=== PATIENT | male | born 1930 | race Two or more races ===

== ENCOUNTER 2017-02-08 06:13 | Inpatient (IN) | payer OTHER ==
[~2017-02-08] VITALS: Ht 167.6 cm; Wt 74.4 kg
--- NOTE | 2017-02-08 06:20 | NUR ---
PT BIBA#75 FROM HOME, PT C/O FLU LIKE SYMPTOMS WITH LOW BP X 2 DAYS. PT AOX3 RR EVEN AND UNLABORED. NO SOB NOTED. NO NVD AT THIS TIME. PT NOT DIAPHORETIC. PT GOWNED ANDPLACED ON MONITOR. PER RA PLACED IV ON LEFT HAND 20G. INTACT AND PATENT. NO S/S INFECTION OR INFILTRATION NOTED. DR OLIVEIRA AT BEDSIDE FOR EVAL.
[2017-02-08] MEDS ORDERED: ONDANSETRON HCL/PF 4 MG/2 ML VIAL ONE (06:28)
[2017-02-08 06:30] LABS: BASOPHILS % (AUTO) 0.7 % (0.0-2.0); EOSINOPHILS % (AUTO) 0.2 % (0.0-6.0); HEMATOCRIT 34 % (39-51); HEMOGLOBIN 11.8 g/dL (13.5-17.5); LYMPHOCYTES # (AUTO) 0.3 /CMM (0.8-4.8); LYMPHOCYTES % (AUTO) 8.9 % (20.0-44.0); MEAN CORPUSCULAR HEMOGLOBIN 32 PG (26.0-33.0); MEAN CORPUSCULAR HGB CONC 34 g/dl (31.0-36.0); MEAN CORPUSCULAR VOLUME 93 fL (80-96); MONOCYTES # (AUTO) 0.2 /CMM (0.1-1.30); MONOCYTES % (AUTO) 5.8 % (2.0-12.0); NEUTROPHILS # (AUTO) 3.3 /CMM (1.8-8.9); NEUTROPHILS % (AUTO) 84.4 % (43.0-81.0); PLATELET COUNT (AUTO) 125 /CMM (150-450); RDW COEFFICIENT OF VARIATION 13.8 (11.5-15.0); RED BLOOD CELL COUNT(AUTO) 3.68 MIL/uL (4.5-6.0); WHITE BLOOD COUNT (AUTO) 3.8 K/uL (4.3-11.0)
[2017-02-08] MEDS ORDERED: ONDANSETRON HCL/PF 4 MG/2 ML VIAL IVP ONE (06:30)
[2017-02-08] MEDS ORDERED: IV NS 0.9% 1,000 ML BAG IV ONE ×4 (06:30→13:00)
[2017-02-08 06:48] LABS: CALCIUM, SERUM 8.2 mg/dL (8.5-10.1); CARBON DIOXIDE 22 mmol/L (21-32); CHLORIDE 106 mmol/L (98-107); CREATININE 1.6 mg/dL (0.6-1.3); GLUCOSE 117 mg/dL (74-106); POTASSIUM 3.5 mmol/L (3.5-5.1); SODIUM SERUM 140 mmol/L (136-145); UREA NITROGEN, BLOOD 20 mg/dL (7-18)
[2017-02-08 06:53] LABS: ALANINE AMINOTRANSFERASE 18 U/L (12-78); ALBUMIN 2.9 g/dL (3.4-5.0); ALKALINE PHOSPHATASE 42 U/L (46-116); ASPARTATE AMINOTRANSFERASE 20 U/L (15-37); BILIRUBIN,DIRECT 0.2 mg/dL (0.0-0.2); TOTAL PROTEIN, SERUM 5.8 g/dL (6.4-8.2)
[2017-02-08 06:58] LABS: TROPONIN I 0.049 ng/mL (0.00-0.056)
[2017-02-08 06:59] LABS: INR 0.98 (0.87-1.13); PROTHROMBIN TIME 10.2 SECS (9.5-12.7)
--- NOTE | 2017-02-08 07:15 | NUR ---
REPORT GIVEN TO MABEL MC FOR PATRICIA
[2017-02-08] MEDS ORDERED: AZITHROMYCIN 500 MG in IV D5W 250 ML IV ONE (07:30)
[2017-02-08] MEDS ORDERED: CEFTRIAXONE 1GM BAG (ER ONLY) 50 ML IV ONE (07:30)
--- NOTE | 2017-02-08 07:37 | NUR ---
VERBALLY ORDERED BY DR OLIVEIRA, 1L NS IV BOLUS.
[2017-02-08] MEDS ORDERED: BECL8.7A6 IH (07:47)
[2017-02-08] MEDS ORDERED: MONT10TA22 PO (07:47)
[2017-02-08] MEDS ORDERED: SIMV40TA5 PO (07:47)
[2017-02-08] MEDS ORDERED: RANI300T4 PO (07:47)
[2017-02-08] MEDS ORDERED: LORA10TA7 PO (07:47)
[2017-02-08] MEDS ORDERED: ALBU8.5H8 IH (07:47)
[2017-02-08] MEDS ORDERED: ALBU2.5V38 IH (07:47)
[2017-02-08] MEDS ORDERED: ASPI-1169 PO (07:47)
[2017-02-08] MEDS ORDERED: NOREPINEPHRINE 8 MG in IV D5W 500 ML IV ONE (10:30)
[2017-02-08] MEDS ORDERED: FEE PK DOSING 1 MIN EA MC ONE (10:32)
[2017-02-08] MEDS ORDERED: IPRATROPIUM NEB FS 0.5 MG/2.5 ML AMPUL.NEB NEB ONE (11:00)
[2017-02-08] MEDS ORDERED: ALBUTEROL FS 2.5 MG/3 ML VIAL.NEB CONTNEB ONE (11:00)
[2017-02-08] MEDS ORDERED: IPRATROPIUM NEB FS 0.5 MG/2.5 ML AMPUL.NEB ONE (11:00)
[2017-02-08] MEDS ORDERED: IBUPROFEN 600 MG TABLET PO ONE ×2 (11:00→11:01)
[2017-02-08] MEDS ORDERED: ALBUTEROL FS 2.5 MG/3 ML VIAL.NEB ONE ×2 (11:00→23:03)
--- NOTE | 2017-02-08 11:14 | NUR ---
BREATHING TREATMENT AT .
--- NOTE | 2017-02-08 12:23 | NUR ---
XRAY IN PROGRESS AT BS FOR POST PICC LINE PLACEMENT VERIFICATION.
[2017-02-08] MEDS ORDERED: NOREPINEPHRINE 8 MG in IV D5W 500 ML IV PRN ×2 (12:30→13:00)
[2017-02-08] MEDS ORDERED: MORPHINE SULFATE INJ 2 MG/ML DISP.SYRIN IV PRN (13:00)
[2017-02-08] MEDS ORDERED: VANCOMYCIN 1 GM in IV D5W 250 ML IV ONE (13:00)
[2017-02-08] MEDS ORDERED: methylPREDNISolone SOD SUCC 40 MG/ML VIAL IV SCH (13:00)
[2017-02-08 13:23] LABS: IRON, SERUM 14 ug/dl (50-175); TOTAL IRON BINDING CAPACITY 233 ug/dl (250-450)
[2017-02-08] MEDS ORDERED: ALBUTEROL FS 2.5 MG/3 ML VIAL.NEB IH SCH (18:00)
--- NOTE | 2017-02-08 19:30 | NUR ---
PATIENT IS ALERT AND RESPONSIVE. VSS. NAD NOTED. ONGOING LEVO DRIP AT 2MCG/MIN, WILL FOLLOW TITRATION PROTOCOL AND WILL CLOSELY MONITOR PATIENT.
[2017-02-08] MEDS ORDERED: VANCOMYCIN 1 GM VIAL ONE (20:52)
[2017-02-08] MEDS ORDERED: PIPERACILLIN /TAZOBACTAM 3.375 G VIAL IV ONE (20:52)
[2017-02-08] MEDS ORDERED: MONTELUKAST SODIUM (10MG) 10 MG TABLET ONE (20:52)
[2017-02-08] MEDS ORDERED: SIMVASTATIN 20 MG TABLET ONE (20:53)
[2017-02-08] MEDS ORDERED: ASPIRIN EC 81 MG TABLET.DR PO ONE (20:53)
[2017-02-08] MEDS: ASPIRIN 81 MG TAB.CHEW PO SCH (21:22)
[2017-02-08] MEDS: MONTELUKAST SODIUM (10MG) 10 MG TABLET PO SCH (21:23)
[2017-02-08] MEDS: SIMVASTATIN 40 MG TABLET PO SCH (21:23)
--- NOTE | 2017-02-08 21:59 | NUR ---
PATIENT IS SLEEPING COMFORTABLY AT THIS TIME.
[2017-02-08] MEDS ORDERED: methylPREDNISolone SOD SUCC 125 MG/2ML VIAL ONE (22:01)
[2017-02-08] MEDS: PIPERACILLIN /TAZOBACTAM 3.375 G in IV D5W 50 ML IV SCH (22:40)
[2017-02-09] MEDS: PIPERACILLIN /TAZOBACTAM 3.375 G in IV D5W 50 ML IV SCH ×5 (00:24→23:07)
[2017-02-09 06:25] LABS: HEMATOCRIT 34 % (39-51); HEMOGLOBIN 11.9 g/dL (13.5-17.5); LYMPHOCYTES # (AUTO) 0.2 /CMM (0.8-4.8); LYMPHOCYTES % (AUTO) 1.8 % (20.0-44.0); MEAN CORPUSCULAR HEMOGLOBIN 33 PG (26.0-33.0); MEAN CORPUSCULAR HGB CONC 35 g/dl (31.0-36.0); MEAN CORPUSCULAR VOLUME 94 fL (80-96); MONOCYTES % (AUTO) 0.5 % (2.0-12.0); NEUTROPHILS # (AUTO) 9.6 /CMM (1.8-8.9); NEUTROPHILS % (AUTO) 97.7 % (43.0-81.0); PLATELET COUNT (AUTO) 112 /CMM (150-450); RDW COEFFICIENT OF VARIATION 14.9 (11.5-15.0); RED BLOOD CELL COUNT(AUTO) 3.63 MIL/uL (4.5-6.0); WHITE BLOOD COUNT (AUTO) 9.8 K/uL (4.3-11.0)
[2017-02-09 06:48] LABS: TROPONIN I 0.092 ng/mL (0.00-0.056)
[2017-02-09 06:49] LABS: ALANINE AMINOTRANSFERASE 20 U/L (12-78); ALBUMIN 2.7 g/dL (3.4-5.0); ALKALINE PHOSPHATASE 28 U/L (46-116); ASPARTATE AMINOTRANSFERASE 27 U/L (15-37); BILIRUBIN,TOTAL 0.7 mg/dL (0.2-1.0); CALCIUM, SERUM 7.8 mg/dL (8.5-10.1); CARBON DIOXIDE 19 mmol/L (21-32); CHLORIDE 109 mmol/L (98-107); CREATININE 1.3 mg/dL (0.6-1.3); GLUCOSE 97 mg/dL (74-106); POTASSIUM 4.1 mmol/L (3.5-5.1); SODIUM SERUM 140 mmol/L (136-145); TOTAL PROTEIN, SERUM 6.1 g/dL (6.4-8.2); UREA NITROGEN, BLOOD 21 mg/dL (7-18)
--- NOTE | 2017-02-09 06:55 | NUR ---
NO ACUTE SIGNIFICANT CHANGES AT THIS TIME. VSS. NAD NOTED. PATIENT REMAINED AND AAOX3. MAINTAINED ON O2 INH. ONGOING VS MONITORING. MEDICATED PATIENT ORDERED. NEEDS ATTENDED.
[2017-02-09 06:57] LABS: CREATINE KINASE MB 3.3 ng/mL (0-3.6)
--- NOTE | 2017-02-09 07:29 | NUR ---
REPORT GIVEN TO RONNIE MONROE FOR PATRICIA.
[2017-02-09 07:35] LABS: INR 1.15 (0.87-1.13)
[2017-02-09] MEDS ORDERED: PANTOPRAZOLE 40 MG VIAL ONE (09:47)
[2017-02-09] MEDS ORDERED: LORATADINE 10 MG TABLET ONE (09:47)
[2017-02-09] MEDS: PANTOPRAZOLE 40 MG VIAL IV SCH (09:52)
[2017-02-09] MEDS: LORATADINE 10 MG TABLET PO SCH (09:54)
--- NOTE | 2017-02-09 13:51 | NUR ---
NM: LUNG V/Q WAS COMPLETED. TECH:RB.
[2017-02-09] MEDS: VANCOMYCIN 1 GM in IV D5W 250 ML IV SCH (16:40)
[2017-02-09] MEDS ORDERED: ALBUTEROL FS 2.5 MG/3 ML VIAL.NEB ONE (17:54)
[2017-02-09] MEDS: ALBUTEROL FS 2.5 MG/3 ML VIAL.NEB NEB SCH (17:56)
[2017-02-09] MEDS: ASPIRIN 81 MG TAB.CHEW PO SCH (18:30)
[2017-02-09] MEDS: SIMVASTATIN 40 MG TABLET PO SCH (18:32)
[2017-02-09] MEDS: MONTELUKAST SODIUM (10MG) 10 MG TABLET PO SCH (18:32)
[2017-02-09] MEDS ORDERED: ASPIRIN 81 MG TAB.CHEW ONE (18:34)
--- NOTE | 2017-02-09 20:20 | NUR ---
REPORT GIVEN TO MABEL LENNON FOR PATRICIA.
--- NOTE | 2017-02-09 20:30 | NUR ---
PT REPORT RECIVED FROM RONNIE RN, PT IN BED ON MONITOR, NAD NOTED, VSS, WILL CONTINUE TO MONITOR.
[2017-02-09 21:30] VITALS: BP 124/60
[2017-02-09 22:00] VITALS: BP 135/54
[2017-02-09] MEDS ORDERED: HEPARIN SODIUM, PORCINE 5000 UNITS/1 ML VIAL ONE ×2 (22:57→22:58)
[2017-02-09] MEDS ORDERED: PIPERACILLIN /TAZOBACTAM 3.375 G VIAL IV ONE (22:58)
[2017-02-09 23:00] VITALS: BP 120/61
[2017-02-09] MEDS: HEPARIN SODIUM, PORCINE 5000 UNITS/1 ML VIAL SQ SCH (23:02)
[2017-02-09] MEDS ORDERED: IV NS 0.9% 250 ML IV PRN (23:30)
[2017-02-10] VITALS (13 sets, daily range): BP systolic 91–138; BP diastolic 40–108
--- NOTE | 2017-02-10 04:40 | NUR ---
RETORT FIREMAN PT WAS ADMITTED FROM ER WITH DIAGNOSIS PNA, PE. V/Q SCAN DONE IN ER-INTERMEDIATE PROBABILITY FOR PE. PT IS AWAKE ALERT, ORIENTED. SPEECH CLEAR. MOVES ALL EXTREMITIES. O2 4L VIA N/C. LUNGS CLEAR. SCOPE-SR. VSS, AFEBRILE. STARTED HEPARIN 5000 UNITS SQ Q 12 HOURS. IV SITE INTACT. VOIDS SUFFICIENT AMT. OF CLEAR URINE.
[2017-02-10] MEDS ORDERED: PIPERACILLIN /TAZOBACTAM 3.375 G VIAL IV ONE (05:03)
[2017-02-10] MEDS: PIPERACILLIN /TAZOBACTAM 3.375 G in IV D5W 50 ML IV SCH ×3 (05:26→17:05)
[2017-02-10 05:52] LABS: HEMATOCRIT 30 % (39-51); HEMOGLOBIN 10.4 g/dL (13.5-17.5); LYMPHOCYTES # (AUTO) 0.4 /CMM (0.8-4.8); LYMPHOCYTES % (AUTO) 2.5 % (20.0-44.0); MEAN CORPUSCULAR HEMOGLOBIN 32 PG (26.0-33.0); MEAN CORPUSCULAR HGB CONC 34 g/dl (31.0-36.0); MEAN CORPUSCULAR VOLUME 94 fL (80-96); MONOCYTES % (AUTO) 0.3 % (2.0-12.0); NEUTROPHILS # (AUTO) 15.8 /CMM (1.8-8.9); NEUTROPHILS % (AUTO) 97.2 % (43.0-81.0); PLATELET COUNT (AUTO) 94 /CMM (150-450); RDW COEFFICIENT OF VARIATION 14.9 (11.5-15.0); RED BLOOD CELL COUNT(AUTO) 3.21 MIL/uL (4.5-6.0); WHITE BLOOD COUNT (AUTO) 16.2 K/uL (4.3-11.0)
[2017-02-10 06:05] LABS: CALCIUM, SERUM 7.8 mg/dL (8.5-10.1); CARBON DIOXIDE 23 mmol/L (21-32); CHLORIDE 107 mmol/L (98-107); GLUCOSE 102 mg/dL (74-106); MAGNESIUM 1.9 mg/dL (1.8-2.4); PHOSPHORUS 1.5 mg/dL (2.5-4.9); POTASSIUM 3.3 mmol/L (3.5-5.1); SODIUM SERUM 139 mmol/L (136-145); UREA NITROGEN, BLOOD 26 mg/dL (7-18)
--- NOTE | 2017-02-10 07:30 | NUR ---
HOURLY SHIFT INITIAL NOTES RECEIVED PATIENT IN BED, NO SIGNS OF DISTRESS, ON O2 3L SATURATING WELL, STATES HE IS FEELING BETTER TODAY, SITTING UP IN BED, IV ACCESS L HAND 20G, RAC 18G, AND PICC ROXANNA, ON TELE MONITORING SR 81, ABLE TO USE URINAL CLEAR YELLOW URINE NOTED, BED IN LOW AND LOCKED POSITION, CALL LIGHT WITHIN REACH, WILL CONTINUE TO MONITOR.
[2017-02-10] MEDS: PANTOPRAZOLE 40 MG VIAL IV SCH (08:58)
[2017-02-10] MEDS: HEPARIN SODIUM, PORCINE 5000 UNITS/1 ML VIAL SQ SCH ×2 (08:58→21:52)
[2017-02-10] MEDS: LORATADINE 10 MG TABLET PO SCH (08:58)
[2017-02-10] MEDS: VANCOMYCIN 1 GM in IV D5W 250 ML IV SCH (09:01)
[2017-02-10] MEDS ORDERED: POTASSIUM PHOSPHATE MM 15 MMOL in IV D5W 250 ML IV SCH (10:00)
[2017-02-10] MEDS ORDERED: POTASSIUM CHLORIDE 20 MEQ TAB.PRT.SR PO ONE (10:00)
[2017-02-10 10:15] LABS: BAND % (MANUAL) 19 % (0.0-5.0); LYMPHOCYTES % (MANUAL) 5 % (16-48); MONOCYTES % (MANUAL) 4 % (0-11.0); NEUTROPHILS % (MANUAL) 72 (42-76)
--- NOTE | 2017-02-10 10:44 | NUR ---
AUTO ELECTRICIAN NOTES PATIENT TRANSFERRED TO [facility]-2 REPORT GIVEN TO MARIAJOSE MONROE. ALL NEEDS ATTENDED TO, NO SIGNS OF DISTRESS. FAMILY AT BEDSIDE.
--- NOTE | 2017-02-10 11:00 | NUR ---
RN NOTES PT BROUGHT ONTO FLOOR BY LITIGATION PARTNER JAVIER. PT ON STABLE CONDITION ON 4L O2, RESPIRATIONS ARE EVEN AND UNLABORED. PT IS ALERT AND ORIENTED, DENIES ANY PAIN AND SHOWS NO SIGNS OF DISTRESS. WILL CONTINUE TO MONITOR.
[2017-02-10] MEDS ORDERED: IV NS 0.9% 250 ML IV ONE (11:22)
[2017-02-10] MEDS ORDERED: CT SWABBABLE VALVE TRANS SET 1 EA INFUS.SET MC ONE (11:23)
[2017-02-10] MEDS ORDERED: IOHEXOL-350 100 ML VIAL IV ONE (11:23)
[2017-02-10] MEDS: POTASSIUM PHOSPHATE MM 7.5 MMOL in IV D5W 100 ML IV SCH ×2 (12:46→15:45)
[2017-02-10] MEDS: MORPHINE SULFATE INJ 4 MG/ML DISP.SYRIN IV PRN (14:12)
[2017-02-10] MEDS: MONTELUKAST SODIUM (10MG) 10 MG TABLET PO SCH (17:05)
[2017-02-10] MEDS: SIMVASTATIN 40 MG TABLET PO SCH (17:05)
[2017-02-10] MEDS: LACTOBACILLUS RHAMNOSUS GG 1 EACH CAP.SPRINK PO SCH (17:05)
[2017-02-10] MEDS: ASPIRIN 81 MG TAB.CHEW PO SCH (17:05)
--- NOTE | 2017-02-10 18:33 | NUR ---
RN NOTES PT IS SITTING AT THE EDGE OF BED EATING DINNER. PT ON 4L O2, RESPIRATIONS ARE EVEN AND UNLABORED. IV ON L HAND INTACT, RAC INTACT AND RUNNING NS @ 100ML/HR AND ROXANNA PICC LINE INTACT AND RUNNING POTASSIUM PHOSPHATE @ 35ML/HR. ALL MEDS WERE GIVEN ORDERED. PT NEEDS MET, NO SIGNS OF DISTRESS NOTED. SAFETY MEASURES ARE IN PLACE, CALL LIGHT IS IN REACH. WILL ENDORSE TO TEA LEAF READER RN FOR CONTINUITY OF CARE.
--- NOTE | 2017-02-10 19:00 | NUR ---
RN NOTES A/O X 4, PT IN STABLE CONDITION, NO S/S OF DISTRESS. SAFETY MEASURES ARE IN PLACE, CALL LIGHT IS IN REACH. WILL CONTINUE TO MONITOR.
[2017-02-10] MEDS: VANCOMYCIN 0.75 GM in IV D5W 250 ML IV SCH (21:49)
[2017-02-10] MEDS: IV NS 0.9% 1,000 ML IV PRN (21:50)
[2017-02-11] VITALS: BP_SYST 119; BP_SYST 126; BP_DIAS 71; BP_DIAS 75
[2017-02-11] MEDS: PIPERACILLIN /TAZOBACTAM 3.375 G in IV D5W 50 ML IV SCH ×4 (00:18→17:05)
[2017-02-11] MEDS: ACETAMINOPHEN 650 MG/20.3 ML UDC NG PRN (00:22)
[2017-02-11 04:00] VITALS: BP_SYST 113; BP_SYST 126; BP_DIAS 62; BP_DIAS 71
--- NOTE | 2017-02-11 06:20 | NUR ---
MS RN CLOSING NOTES IN BED ASLEEP AND EASILY AWAKEN, ON O2 2LPM VIA NC 02 SAT AT 97% RESPIRATIONS EVEN AND UNLABORED. NOT IN S/S DISTRESS. STABLE CONDITION. ALL NURSING CARE RENDERED. NEEDS ATTENDED AND ANTICIPATED, KEPT CLEAN AND DRY AND COMFORTABLE, FREQUENT VISUAL CHECK DONE FOR SAFETY EVERY 2 HOURS. ON LOW BED AT ALL TIMES TO ENSURE SAFETY. SAFE HAZARD FREE ENVIRONMENT PROVIDED. CALL LIGHT WITHIN EASY TO REACH. WILL ENDORSE NEXT SHIFT CONTINUITY OF CARE.
[2017-02-11 07:51] LABS: BASOPHILS % (AUTO) 0.1 % (0.0-2.0); EOSINOPHILS # (AUTO) 0.1 /CMM (0.0-0.7); EOSINOPHILS % (AUTO) 0.9 % (0.0-6.0); HEMATOCRIT 31 % (39-51); HEMOGLOBIN 10.6 g/dL (13.5-17.5); LYMPHOCYTES # (AUTO) 0.9 /CMM (0.8-4.8); LYMPHOCYTES % (AUTO) 8.5 % (20.0-44.0); MEAN CORPUSCULAR HEMOGLOBIN 33 PG (26.0-33.0); MEAN CORPUSCULAR HGB CONC 35 g/dl (31.0-36.0); MEAN CORPUSCULAR VOLUME 94 fL (80-96); MONOCYTES # (AUTO) 0.1 /CMM (0.1-1.30); MONOCYTES % (AUTO) 0.8 % (2.0-12.0); NEUTROPHILS # (AUTO) 9.8 /CMM (1.8-8.9); NEUTROPHILS % (AUTO) 89.7 % (43.0-81.0); PLATELET COUNT (AUTO) 95 /CMM (150-450); RDW COEFFICIENT OF VARIATION 15.1 (11.5-15.0); RED BLOOD CELL COUNT(AUTO) 3.27 MIL/uL (4.5-6.0); WHITE BLOOD COUNT (AUTO) 10.9 K/uL (4.3-11.0)
[2017-02-11 08:00] VITALS: BP 130/71
--- NOTE | 2017-02-11 08:00 | NUR ---
RN NOTES RECEIVED PATIENT IN THE BED SLEEPING, AROUSE WHEN TOUGHED OR CALLED NAME, V/S TAKEN STABLE, NO ACUTE RESPIRATORY DISTRESS, IV LINE ON LEFT HAND NS AT 100 ML/HR INTACT, CALL LIGHT WITHIN TO REACH, SAFETY PRECAUTION MAINTAINED ALL THE TIME.
[2017-02-11 08:21] LABS: ALANINE AMINOTRANSFERASE 56 U/L (12-78); ALBUMIN 2.1 g/dL (3.4-5.0); ALKALINE PHOSPHATASE 111 U/L (46-116); ASPARTATE AMINOTRANSFERASE 66 U/L (15-37); BILIRUBIN,TOTAL 0.6 mg/dL (0.2-1.0); CALCIUM, SERUM 8.2 mg/dL (8.5-10.1); CARBON DIOXIDE 25 mmol/L (21-32); CHLORIDE 109 mmol/L (98-107); CREATININE 1.2 mg/dL (0.6-1.3); GLUCOSE 79 mg/dL (74-106); MAGNESIUM 1.9 mg/dL (1.8-2.4); PHOSPHORUS 2.8 mg/dL (2.5-4.9); POTASSIUM 3.9 mmol/L (3.5-5.1); SODIUM SERUM 140 mmol/L (136-145); TOTAL PROTEIN, SERUM 5.6 g/dL (6.4-8.2); UREA NITROGEN, BLOOD 23 mg/dL (7-18)
--- NOTE | 2017-02-11 09:00 | NUR ---
RN NOTES PER DR PRICE PATIENT D/C TELE , PATIENT ON MED SURGE AT THIS TIME, CONTINUED MONITORING.
[2017-02-11] MEDS: VANCOMYCIN 0.75 GM in IV D5W 250 ML IV SCH ×2 (10:23→21:06)
[2017-02-11] MEDS: LACTOBACILLUS RHAMNOSUS GG 1 EACH CAP.SPRINK PO SCH ×2 (10:24→17:04)
[2017-02-11] MEDS: PANTOPRAZOLE 40 MG VIAL IV SCH (10:24)
[2017-02-11] MEDS: LORATADINE 10 MG TABLET PO SCH (10:24)
[2017-02-11] MEDS: ENOXAPARIN SODIUM 40 MG/0.4 ML DISP.SYRIN SQ SCH (10:33)
[2017-02-11 13:31] LABS: BAND % (MANUAL) 2 % (0.0-5.0); LYMPHOCYTES % (MANUAL) 8 % (16-48); NEUTROPHILS % (MANUAL) 82 (42-76)
[2017-02-11 13:32] LABS: EOSINOPHILS % (MANUAL) 1 % (0-4); METAMYELOCYTES % 1 % (0-0); MONOCYTES % (MANUAL) 6 % (0-11.0)
--- NOTE | 2017-02-11 14:06 | NUR ---
rn notes patient sitting edge of the bed, no acute distress, no respiratory distress, v/s stable, scheduled medication administered, call light within to reach, patient using urinal, safety precaution maintained all the time.
[2017-02-11 16:00] VITALS: BP 141/88
[2017-02-11] MEDS: IV NS 0.9% 1,000 ML IV PRN (16:46)
[2017-02-11] MEDS: SIMVASTATIN 40 MG TABLET PO SCH (17:09)
[2017-02-11] MEDS: ASPIRIN 81 MG TAB.CHEW PO SCH (17:09)
[2017-02-11] MEDS: MONTELUKAST SODIUM (10MG) 10 MG TABLET PO SCH (17:09)
[2017-02-11] MEDS: ALBUTEROL FS 2.5 MG/3 ML VIAL.NEB NEB SCH ×2 (17:17→17:19)
[2017-02-11] MEDS: MORPHINE SULFATE INJ 4 MG/ML DISP.SYRIN IV PRN (18:09)
--- NOTE | 2017-02-11 18:09 | NUR ---
rn notes administered morphine 2 ml/mg generalized pain aching 07/15, per patient request, v/s taken bp-141/88, p-77, continued monitoring, also administered scheduled medication.
--- NOTE | 2017-02-11 19:00 | NUR ---
rn notes medication were administered for pain effective, v/s stable, patient sitting in the bed, no acute respiratory distress. infusing ns at 100 ml/hr, call light within to reach. endorsed oncoming nurse for faraz.
--- NOTE | 2017-02-11 20:00 | NUR ---
rECIEVED MR. MURPHY YOLANDA AND ALERT. SMILING STATED HE "PERFECT" SERVED A CONTAINED OR JIUCE AND WARM BLANKET FOR SHOULDERS, HE WAS THANKFUL. REVIEWED THE CALL LIGHT WITH HIM AND REMINED HIM ABOUT SAFETY. NO SOB MOVES ABOUT INDEPENTENLY IN THE BED
[2017-02-11 21:50] VITALS: BP 132/74
[2017-02-12] MEDS: PIPERACILLIN /TAZOBACTAM 3.375 G in IV D5W 50 ML IV SCH ×5 (00:04→23:29)
--- NOTE | 2017-02-12 03:28 | NUR ---
CLOSING NOTES:MR MURPHY WOKE UP FROM SLEEP AT 3AM USING THE URINAL TO VOID CLEAR YELLOW URINE, STRAIGHTENED HIS BED FOR HIM AND SETTLED HIM HIM AND HE WENT BACK TO SLEEP. NO C/O PAIN OR SOB THIS 12 HOURS.LUNGS CLEAR VIA AUSCULTATION BILATERALLY,NO COUGHING,VERBALIZED HE FELT PERFECT!
[2017-02-12 08:00] VITALS: BP 152/74
--- NOTE | 2017-02-12 08:00 | NUR ---
RN NOTES RECEIVED PATIENT IN THE ROOM, A/O X3/4, ON O2-2L, NO ACUTE RESPIRATORY DISTRESS, ENCOURAGED TO EXPRESS FEELINGS AND CONCERNS. V/S STABLE, IV LINE RIGHT UPPER MIDLINE NS AT 100 ML/HR, INTACT. PATIENT REFUSED PAIN AT THIS TIME, USING URINAL, NEEDS ATTENDED AND ANTICIPATED, CALL LIGHT WITHIN TO REACH, CONTINUED MONITORING.
[2017-02-12 09:13] LABS: BASOPHILS % (AUTO) 0.2 % (0.0-2.0); EOSINOPHILS # (AUTO) 0.1 /CMM (0.0-0.7); EOSINOPHILS % (AUTO) 1.5 % (0.0-6.0); HEMATOCRIT 32 % (39-51); HEMOGLOBIN 11.4 g/dL (13.5-17.5); LYMPHOCYTES # (AUTO) 0.7 /CMM (0.8-4.8); LYMPHOCYTES % (AUTO) 9.9 % (20.0-44.0); MEAN CORPUSCULAR HEMOGLOBIN 33 PG (26.0-33.0); MEAN CORPUSCULAR HGB CONC 35 g/dl (31.0-36.0); MEAN CORPUSCULAR VOLUME 93 fL (80-96); MONOCYTES # (AUTO) 0.3 /CMM (0.1-1.30); MONOCYTES % (AUTO) 4.5 % (2.0-12.0); NEUTROPHILS # (AUTO) 6.1 /CMM (1.8-8.9); NEUTROPHILS % (AUTO) 83.9 % (43.0-81.0); PLATELET COUNT (AUTO) 113 /CMM (150-450); RDW COEFFICIENT OF VARIATION 14.7 (11.5-15.0); RED BLOOD CELL COUNT(AUTO) 3.46 MIL/uL (4.5-6.0); WHITE BLOOD COUNT (AUTO) 7.3 K/uL (4.3-11.0)
[2017-02-12 09:25] LABS: CALCIUM, SERUM 8.3 mg/dL (8.5-10.1); CARBON DIOXIDE 22 mmol/L (21-32); CHLORIDE 105 mmol/L (98-107); CREATININE 0.9 mg/dL (0.6-1.3); GLUCOSE 98 mg/dL (74-106); MAGNESIUM 1.7 mg/dL (1.8-2.4); PHOSPHORUS 3.5 mg/dL (2.5-4.9); POTASSIUM 3.4 mmol/L (3.5-5.1); SODIUM SERUM 139 mmol/L (136-145); UREA NITROGEN, BLOOD 17 mg/dL (7-18)
[2017-02-12] MEDS: LACTOBACILLUS RHAMNOSUS GG 1 EACH CAP.SPRINK PO SCH ×2 (09:37→17:23)
[2017-02-12] MEDS: PANTOPRAZOLE 40 MG VIAL IV SCH (09:37)
[2017-02-12] MEDS: LORATADINE 10 MG TABLET PO SCH (09:38)
[2017-02-12] MEDS: ENOXAPARIN SODIUM 40 MG/0.4 ML DISP.SYRIN SQ SCH (09:42)
[2017-02-12] MEDS: VANCOMYCIN 0.75 GM in IV D5W 250 ML IV SCH ×2 (09:47→21:50)
[2017-02-12] MEDS ORDERED: POTASSIUM CHLORIDE 20 MEQ TAB.PRT.SR PO ONE ×2 (11:00→13:30)
[2017-02-12] MEDS ORDERED: Magnesium 1GM/D5W 100ML PREMIX PIGGYBACK IV ONE (11:00)
[2017-02-12] MEDS ORDERED: Magnesium 1GM/D5W 100ML PREMIX 100 ML IV SCH ×2 (11:09→13:30)
[2017-02-12] MEDS: Magnesium 1GM/D5W 100ML PREMIX 100 ML IV SCH ×2 (11:33→12:29)
[2017-02-12] MEDS ORDERED: POTASSIUM CHLORIDE 20 MEQ TAB.PRT.SR PO SCH (12:00)
--- NOTE | 2017-02-12 12:00 | NUR ---
RN NOTES PATIENT IN THE BED NO ACUTE DISTRESS, INFUSING NS AT 100 ML/HR, INTACT, AND SCHEDULED MEDICATION. PATIENT USING URINAL, CALL LIGHT WITHIN TO REACH, CONTINUED MONITORING.
--- NOTE | 2017-02-12 13:37 | NUR ---
RN NOTES PATIENT SITTING IN THE CHAIR, ON O2--2L NC, NO SOB NOTED AT THIS TIME, CALL LIGHT WITHIN TO REACH, NEEDS ATTENDED AND ANTICIPATED, CONTINUED MONITORING.
[2017-02-12 16:00] VITALS: BP 141/69
[2017-02-12] MEDS: SIMVASTATIN 40 MG TABLET PO SCH (17:23)
[2017-02-12] MEDS: ACETAMINOPHEN 650 MG/20.3 ML UDC NG PRN (17:23)
[2017-02-12] MEDS: ASPIRIN 81 MG TAB.CHEW PO SCH (17:23)
[2017-02-12] MEDS: MONTELUKAST SODIUM (10MG) 10 MG TABLET PO SCH (17:23)
--- NOTE | 2017-02-12 17:24 | NUR ---
RN NOTES ADMINISTERED TYLENOL 650 MG/ML PO PRN FOR GENERALIZED PAIN 5/10 PER PATIENT REQUEST, CONTINUED MONITORING.
--- NOTE | 2017-02-12 18:30 | NUR ---
RN NOTES PATIENT GATING BREATHING TREATMENT, MEDICATION WERE ADMINISTERED FOR GENERALIZED PAIN EFFECTIVE, SCHEDULED MEDICATION ADMINISTERED, V/S STABLE, IV MIDLINE RIGHT UPPER ARM INTACT. ENDORSED ONCOMING NURSE FOR CONTINUATION OF CARE.
[2017-02-12] MEDS: ALBUTEROL FS 2.5 MG/3 ML VIAL.NEB NEB SCH (19:54)
[2017-02-12 20:00] VITALS: BP 137/74
--- NOTE | 2017-02-12 20:00 | NUR ---
MS RN OPENING NOTES: RECEIVED PATIENT IN BED, AWAKE, NOT IN RESPIRATORY DISTRESS THUIS TIME OF ASSESSMENT WITH IVF ON RIGHT UPPER ARM ON GOING NS @1OOML/HR, NO REDNESS OR PHLEBITIS ON SITE NOTED THIS TIME. PATIENT WITH OP2 AT 2LP VIA NASAL CANNULA SATURATING AT 97%. PATIENT HAS NO COMPLAINS OF PAIN OR DISCOMFORT THIS TIME. PLACED CALL LIGHT WITHIN PATIENT'S REACH. ASSISTED PATIENT WITH DAILY ACTIVITIES NEEDED. KEPT PATIENT WARM AND DRY. WILL CONTINUE TO MONITOR PATIENT.
[2017-02-13] MEDS: ACETAMINOPHEN 650 MG/20.3 ML UDC NG PRN (00:30)
[2017-02-13] MEDS: IV NS 0.9% 1,000 ML IV PRN (03:16)
[2017-02-13] MEDS: PIPERACILLIN /TAZOBACTAM 3.375 G in IV D5W 50 ML IV SCH ×2 (05:02→11:59)
--- NOTE | 2017-02-13 07:30 | NUR ---
MS RN CLOSING NOTES: PATIENT IN BED, ASLEEP WITH IVF ON RIGHT UPPER ARM, NS @100ML /HR. HEPLOCK ON RIGHT AC NO REDNESS ON SITE, NO SIGNS OF INFECTION OR PHLEBITIS THIS TIME. PATIENT IS ABLE TO USE THE URINAL. ASSISTED THE PATIENT MUCH POSSIBLE WITH DAILY ACTIVITIES. O2 INHALATION ON AT 2LPM VIA NASAL CANNULA, SATURATING AT 97%. ATTENDED TO ALL PATIENTS NEEDS. WILL CONTINUE TO MONITOR. WILL ENDORSE PATIENT TO DAY SHIFT NURSE
[2017-02-13 08:00] VITALS: BP 166/74
--- NOTE | 2017-02-13 08:00 | NUR ---
m/s garage mechanic: initial assessment received pt in bed awake, a/ox4. noted with occ wet cough, pt able to bring up phlegm. no c/o sob, chest pain, or any discomfort. instructed to call for assistance. will continue to monitor.
[2017-02-13 08:24] LABS: BASOPHILS % (AUTO) 0.1 % (0.0-2.0); EOSINOPHILS # (AUTO) 0.2 /CMM (0.0-0.7); EOSINOPHILS % (AUTO) 2.3 % (0.0-6.0); HEMATOCRIT 33 % (39-51); HEMOGLOBIN 11.4 g/dL (13.5-17.5); LYMPHOCYTES # (AUTO) 0.8 /CMM (0.8-4.8); LYMPHOCYTES % (AUTO) 9.6 % (20.0-44.0); MEAN CORPUSCULAR HEMOGLOBIN 32 PG (26.0-33.0); MEAN CORPUSCULAR HGB CONC 35 g/dl (31.0-36.0); MEAN CORPUSCULAR VOLUME 93 fL (80-96); MONOCYTES # (AUTO) 0.6 /CMM (0.1-1.30); NEUTROPHILS # (AUTO) 6.5 /CMM (1.8-8.9); PLATELET COUNT (AUTO) 124 /CMM (150-450); RED BLOOD CELL COUNT(AUTO) 3.52 MIL/uL (4.5-6.0); WHITE BLOOD COUNT (AUTO) 8.1 K/uL (4.3-11.0)
[2017-02-13] MEDS: LORATADINE 10 MG TABLET PO SCH (08:31)
[2017-02-13] MEDS: PANTOPRAZOLE 40 MG VIAL IV SCH (08:31)
[2017-02-13] MEDS: LACTOBACILLUS RHAMNOSUS GG 1 EACH CAP.SPRINK PO SCH (08:31)
[2017-02-13] MEDS: ENOXAPARIN SODIUM 40 MG/0.4 ML DISP.SYRIN SQ SCH (08:34)
[2017-02-13 08:42] LABS: CALCIUM, SERUM 8.5 mg/dL (8.5-10.1); CARBON DIOXIDE 27 mmol/L (21-32); CHLORIDE 107 mmol/L (98-107); GLUCOSE 110 mg/dL (74-106); PHOSPHORUS 3.3 mg/dL (2.5-4.9); POTASSIUM 4.2 mmol/L (3.5-5.1); SODIUM SERUM 141 mmol/L (136-145); UREA NITROGEN, BLOOD 11 mg/dL (7-18)
[2017-02-13] MEDS: VANCOMYCIN 0.75 GM in IV D5W 250 ML IV SCH (09:50)
[2017-02-13] MEDS ORDERED: LEVO750T21 PO (11:57)
[2017-02-13] MEDS ORDERED: GUAI600T53 PO (11:57)
--- NOTE | 2017-02-13 12:00 | NUR ---
m/s director of nuclear medicine: md visit seen and examined by svetlana ([email or web address]) with order to d'c home with home o2 if pt qualifies. pt aware. will get abg. pt is on room air. will continue to monitor.
[2017-02-13 12:39] LABS: ABG OXYGEN SATURATION 89.6 % (92.0-98.5); ABG PCO2 32.5 mmHg (35.0-45.0); ABG PH 7.469 (7.350-7.450); AaDO2 52.8 mmHg; COHb 0.4 % (0.5-1.5); MetHb 0.3 % (0.0-1.5); SITE, ABG Left Radial; VENT MODE, BG ROOM AIR
--- NOTE | 2017-02-13 13:10 | NUR ---
m/s progress clerk: notes abg resulted. svetlana (acnp) here and aware, pt doesn't qualify for home o2 per case management. pt made aware. ok to d'c per svetlana. pt made aware.
--- NOTE | 2017-02-13 14:20 | NUR ---
m/s capacity manager: notes picc line removed by 2 rn with tip intact with pressure dressing applied to site. no active bleeding noted. daughter to pick her up. will continue to monitor.
--- NOTE | 2017-02-13 14:50 | NUR ---
m/s compensation and benefits manager: notes discharged instructions with prescriptions given to pt and daughter; both verbalized understanding. also med teaching provided to pt and daughter. pt getting ready for discharge. daughter brought clothes. right upper arm dressing in place with no active bleeding noted. will continue to monitor.
--- NOTE | 2017-02-13 15:35 | NUR ---
m/s machine stapler: discharged discharged home accompanied by daughter via private car in stable condition with all d'c papers, prescriptions, and valuables.
== END 2017-02-13 15:30 | disposition home or self-care (01) | DRG 871 ==
LOC: ER 06:16 → TRANSITION 23:55 → UNDOADMIN 02-09 08:45 → ER 02-09 10:46 → UNDOADMIN 02-09 10:47 → TELE1 02-09 10:47 → TRANSITION 02-09 16:57 → ICU 02-09 21:20 → MED 02-10 10:34 → TELE 02-10 11:15 → MED 02-11 10:03
PROVIDERS: ADMIT Internal Medicine; ATTEND Internal Medicine
PROC: 02HV33Z Insertion of Infusion Device into Superior Vena Cava, Percutaneous Approach (ICD-10-PCS; principal; 2017-02-10)
PROC: B548ZZA Ultrasonography of Superior Vena Cava, Guidance (ICD-10-PCS; 2017-02-10)
PROC: 05H533Z Insertion of Infusion Device into Right Subclavian Vein, Percutaneous Approach (ICD-10-PCS; 2017-02-11)
PROC: B546ZZA Ultrasonography of Right Subclavian Vein, Guidance (ICD-10-PCS; 2017-02-11)
DX: A41.9 Sepsis, unspecified organism (principal); I21.4 Non-ST elevation (NSTEMI) myocardial infarction; N17.0 Acute kidney failure with tubular necrosis; R65.21 Severe sepsis with septic shock; J15.6 Pneumonia due to other Gram-negative bacteria; E87.2 Acidosis; D68.59 Other primary thrombophilia; E44.0 Moderate protein-calorie malnutrition; J44.0 Chronic obstructive pulmonary disease with (acute) lower respiratory infection; J44.1 Chronic obstructive pulmonary disease with (acute) exacerbation; Z95.1 Presence of aortocoronary bypass graft; Z87.891 Personal history of nicotine dependence; I25.10 Atherosclerotic heart disease of native coronary artery without angina pectoris; Z79.82 Long term (current) use of aspirin; Z79.899 Other long term (current) drug therapy; I12.9 Hypertensive chronic kidney disease with stage 1 through stage 4 chronic kidney disease, or unspecified chronic kidney disease; N18.9 Chronic kidney disease, unspecified; D63.8 Anemia in other chronic diseases classified elsewhere; D50.9 Iron deficiency anemia, unspecified; I95.9 Hypotension, unspecified
CPT/HCPCS: 36415; 36600; 71045-TC; 78582; 80048-TC; 80053-TC; 80076-TC; 80202-TC; 82553-TC; 82803-TC; 83540-TC; 83605-TC; 83735-TC; 84100-TC; 84484-TC; 85025-TC; 85378-TC; 85385-TC; 85610-TC; 85730-TC; 87040-TC; 87081-TC; 87400; A6402; A6403; A9540; A9567; C1751; C9113; J0456; J0696; J1644; J1650; J2270; J2405; J2543; J2930; J3370; J3475; J3490; J7030; J7042; J7050; J7060; Q9967